=== PATIENT | male | born 1990 | race Caucasian/White ===

== ENCOUNTER 2024-05-06 06:56 | Emergency (ER) | payer OTHER, SELFPAY ==
[2024-05-06 07:02] VITALS: BP 139/90
[2024-05-06 07:39] VITALS: BP 144/114
[2024-05-06 08:00] VITALS: BP 132/94
[2024-05-06 08:01] LABS: % Basophils 1.3 % (0-2); % Eosinophils 5.4 % (0-6); % Immature Granulocytes 0.2 % (0-0.5); % Lymphocytes 36.3 % (20.5-51.1); % Monocytes 10.2 % (1.7-9.3); % Neutrophils 46.6 % (42.2-75.2); Absolute Basophils 0.1 10^3/uL (0-0.2); Absolute Eosinophils 0.5 10^3/uL (0-0.7); Absolute Lymphocytes 3.2 10^3/uL (1.2-3.4); Absolute Monocytes 0.9 10^3/uL (0.1-0.6); Absolute Neutrophils 4.1 10^3/uL (1.4-6.5); Hematocrit 45.3 % (39.0-52.0); Hemoglobin 16.3 g/dL (13.0-18.0); Mean Corpuscular Hgb 32.6 pg (27.0-31.0); Mean Corpuscular Volume 90.6 fL (80.0-94.0); Mean Platelet Volume 9.7 fL (7.4-10.4); Nucleated Red Blood Cells % 0 % (-); Platelet Count 250 10^3/uL (130-400); Red Cell Dist. Width 11.8 % (11.5-14.5); White Blood Cell Count 8.8 10^3/uL (4.8-10.8)
[2024-05-06 08:13] LABS: D-Dimer < 0.27 ug/mlFEU (0.00-0.50)
--- NOTE | 2024-05-06 08:13 | ED.GENMED ---
History of Present Illness
General
Chief Complaint: Chest Pain
Source: patient
Exam Limitations: none
Time Seen by Provider: 05/06/24 07:42
Nursing documentation reviewed up to this point in time: agreed with
History of Present Illness
History of Present Illness:
33-year-old male with a past medical history as noted who presents to the ER for evaluation of chest pain. Patient reports onset of symptoms this morning when he woke up, he says that they lasted for about an hour and resolved. He reports a
sensation of pressure/tightness substernal. He says that he woke up with it and symptoms were mild and he decided to go to the gym and while he was at the gym symptoms were not going away and so he came to the ER; symptoms since have resolved. He
notes that symptoms did not worsen with exertion but did not seem to be going away which is what prompted ER visit. He says he did have some mild shortness of breath associated with this chest discomfort. Denies any palpitations. No nausea,
vomiting. He denies any lightheadedness or syncope this morning although he does note that he yesterday after a very hard workout he had some dizziness and his friend says that he may have had a brief syncopal episode while he was sitting in a
chair resting. He says that he has had similar chest discomfort related to panic attacks in the past and he wonders if he may have 'worked myself up' after brief syncopal event yesterday. He has seen Dr. Meyer for routine cardiac screening in the
past.
Past History
Past History
ED Past Medical History: Valvular disease (Congenital pulmonary stenosis)
ED Past Surgical History: Cardiac
Social History
Tobacco: Non-smoker
Alcohol: None
Drug: None
Personal:
Living: with family
Employment: Employed
Family History
Family History: Negative CAD
Review of Systems
Review of Systems
All Other Systems: ROS reviewed and negative except as documented in HPI and ROS
Constitutional: Denies fever or chills
Respiratory: Reports trouble breathing; Denies cough
Cardiac: Reports chest pain and syncope; Denies diaphoresis or palpitations
ABD/GI: Denies abdominal pain, nausea, vomiting or diarrhea
: Denies flank pain
Musculoskeletal: Denies neck pain or back pain
Neurological: Denies dizzy or headache
Phy Exam
Physical Exam
Physical Exam:
General: Awake, alert, oriented x3; no acute distress
Head: Normocephalic, atraumatic
Eyes: Conjunctiva normal
Throat: Airway intact, handling secretions
Neck: Trachea midline, supple without meningismus
Lungs: Clear to auscultation bilaterally, no wheezing, rales, rhonchi
Heart: Regular rate and rhythm, no murmurs, gallops, or rubs appreciated
Abd: Soft, non distended, nontender
Neuro: No gross deficits
Skin: no rash
Extremities: No edema in extremities, equal pulses in all extremities
Scores
Heart Failure Risk
Heart Failure Risk Score: Not Applicable
Heart Score for Chest Pain Patients
STEMI patient?: No
History: Slightly or Non-Suspicious
ECG: Normal
Age: </= 45 years
Risk Factors: No Risk Factors
Troponin: </= Normal Limit
Heart Score for Chest Pain Patients: 0
Heart Score Risk: 2.5% MACE over next 6 weeks
Withdrawal Assessment of Alcohol
Withdrawal Assessment Completed?: Not applicable
Course
Orders/Labs/Results
Orders:
Orders
05/06/24 06:57
Electrocardiogram (*1) Urgent
Reason for Study: Chest Pain
EKG- Treatment ONCE
05/06/24 07:43
CR Chest - 2 Views Urgent
Comment:
Reason For Exam: cp, sob
05/06/24 07:47
CPK [Creatine Phosphokinase] Urgent
Complete Blood Count/With Diff Urgent
Comprehensive Metabolic Panel Urgent
D-Dimer Urgent
Lipase Urgent
Troponin I Urgent
05/06/24 10:30
Echo 2D MMode Color/Doppler Urgent
Reason for Study: chest pain, syncope
Cardiology Consult: Antelmo Pablo
05/06/24 12:03
Troponin I Urgent
Abnormal Lab Results
05/06/24
07:47
MCH 32.6 H pg
(27.0-31.0)
Absolute Monos (auto) 0.9 H 10^3/uL
(0.1-0.6)
Monocytes % 10.2 H %
(1.7-9.3)
ALT 54 H U/L
(0-50)
05/06/24 07:47
05/06/24 07:47
Vital Signs
Initial and Last Documented VS:
Initial Vital Signs
Temp Pulse Resp BP Pulse Ox
36.8 C 93 18 139/90 99
05/06/24 07:02 05/06/24 07:02 05/06/24 07:02 05/06/24 07:02 05/06/24 07:02
Last Documented Vital Signs
Temp Pulse Resp BP Pulse Ox
36.8 C 82 17 124/82 96
05/06/24 07:02 05/06/24 10:30 05/06/24 10:30 05/06/24 10:15 05/06/24 07:39
MDM/Problems Addressed
Differential Diagnosis Includes:
Angina, PE, pneumothorax, costochondritis, pericarditis
MDM/Problems Addressed:
33-year-old male with history as above presents for evaluation of chest discomfort lasted for about an hour this morning; also had brief syncopal episode after intense workout last night. Currently asymptomatic here in the ER. Vitals and exam as
above. EKG shows sinus rhythm with right bundle branch block similar to prior. Plan Place an IV check labs including a CBC and a CMP, troponins, D-dimer. Check chest x-ray. Case discussed with cardiology for an echocardiogram. Will monitor on
telemetry reassess after the above.
Labs reviewed: CBC and CMP unremarkable. Troponin is undetectable x 2. Chest x-ray shows no acute disease. D-dimer is negative. Echocardiogram unchanged from prior. Patient has remained asymptomatic since initial assessment. Observed for 6
hours in the ER with no dysrhythmia or events on the monitor. Vital stable throughout. No clear indication for hospital admission at this point, plan to discharge and follow-up with cardiology as an outpatient. Patient feels very comfortable with
this plan. Spoke about return precautions all questions answered.
*Radiology
Radiology exam reviewed: radiology read reviewed
*Pulse Oximetry
Patient hypoxic: no
*EKG
Interpreted by ED Provider?: Yes
Comparison EKG: no changes
Heart Rate: 81
Rate: normal
Rhythm: sinus
[place]: normal axis
Interval: normal interval
QRS Pattern: right bundle branch block
Ischemia: non-specific ST changes
*Critical Care Note
Total Time (30-74mins, 75-104mins- exclusive of procedures): Not Applicable
Data Reviewed
Review of Other/Old Records Reveals: Labs and Records
Source: patient and records
ED Attending Note
-
Portions of this chart may have been created with voice recognition software.� Occasional wrong word or��sound alike� substitutions may have occurred due to the inherent limitations of voice recognition software.
Discharge Plan
Departure
Patient Disposition: Home (Routine Discharge)
Date of Disposition: 05/06/24
Time of Disposition: 13:24
Patient with high blood pressure during this ER visit?: No
Discharge Problem:
Chest pain
Instructions: Chest Pain CBC Follow Up
Prescriptions:
No Action
meclizine [Antivert] 25 mg tablet,chewable
25 mg PO BIDPRN PRN (Reason: nausea or vertigo) Qty: 10 0RF
ibuprofen 600 mg tablet
600 mg PO TID PRN (Reason: Pain) Qty: 14 0RF
pantoprazole [Protonix] 40 mg tablet,delayed release (DR/EC)
40 mg PO DAILY Qty: 30 2RF
escitalopram oxalate [Lexapro] 10 mg tablet
10 mg PO DAILY Qty: 30 2RF
diclofenac potassium 50 mg tablet
50 mg PO BID Qty: 20 0RF
meclizine [Antivert] 25 mg Tablet,Chewable
25 mg PO BIDPRN PRN (Reason: nausea or vertigo) Qty: 10 0RF
Referrals:
Tony Booker MD [Family Provider] -
Camden Meyer MD [Active] - Call in 1-3 days for appt
Activity Restrictions/Additional Instructions:
Thank you for visiting the Emergency Department at [facility].
1. Please schedule a follow up appointment as directed. Call first thing tomorrow morning to make an appointment.
2. If indicated, please take your medications as instructed and indicated on discharge paperwork.
3. If any of your symptoms do not improve, or persist, or become more severe within 6-12 hours, please return to the emergency department for further care.
4. Please return to the emergency department if you develop a headache, neck pain/stiffness, fever greater than 100.4F, chest pain, shortness of breath, persistent nausea, vomiting, slurred speech, difficulty walking, numbness/tingling, weakness,
signs of infection or any other symptoms that are worrisome to you.
Please call [phone] if you have any questions.
Interventions
Interventions:
*Risk Screen - Suicide Last Done: 05/06/24 07:02
*General Assessment Last Done: 05/06/24 07:02
*Neglect/Abuse Screening Last Done: 05/06/24 07:02
ED- Fall Risk Assessment Last Done: 05/06/24 08:13
*ED COVID-19 Vaccine History Last Done: 05/06/24 08:13
ED- Cardiac Assessment Last Done: 05/06/24 08:13
Discharge Date and Time
Print Language: [place]
[2024-05-06 08:15] LABS: ALT (SGPT) 54 U/L (0-50); AST (SGOT) 38 U/L (17-59); Albumin 4.9 g/dl (3.5-5.0); Alkaline Phosphatase 38 U/L (38-126); Blood Urea Nitrogen 14 mg/dl (9-20); Calcium 9.9 mg/dl (8.4-10.2); Carbon Dioxide 28 mmol/L (22-30); Chloride 102 mmol/L (98-107); Creatine Phosphokinase 164 U/L (55-170); Glucose 93 mg/dl (70-99); Lipase 167 U/L (23-300); Potassium 4.2 mmol/L (3.5-5.1); Sodium 143 mmol/L (135-145); Total Bilirubin 0.5 mg/dl (0.2-1.3); Total Protein 7.5 g/dl (6.3-8.2); eGFR > 60.00
[2024-05-06 08:26] LABS: Troponin I < 0.012 ng/ml
[2024-05-06 10:15] VITALS: BP 124/82
[2024-05-06 12:37] LABS: Troponin I < 0.012 ng/ml
== END 2024-05-06 13:40 | disposition home or self-care (01) ==
LOC: EMR 06:56
PROVIDERS: EMERGENCY PHYSICIAN Emergency Medicine; FAMILY PHYSICIAN Family Medicine
DX: R07.89 Other chest pain (principal); I45.10 Unspecified right bundle-branch block; Q25.6 Stenosis of pulmonary artery
CPT/HCPCS: 99285; 71046; 80053; 82550; 83690; 84484; 85025; 85379; 93005; 93306